=== PATIENT | male | born 1965 | race Hispanic/Latino ===

== ENCOUNTER 2019-08-02 18:46 | Emergency (ER) | payer OTHER ==
[2019-08-02] MEDS ORDERED: IOHEXOL 350 MG/ML 100ML INFUS..BTL IV ONE (19:11)
[2019-08-02 20:04] LABS: BASOPHILS % (AUTO) 0.5 % (0.0-5.0); EOSINOPHILS % (AUTO) 0.4 % (0.0-8.0); HEMATOCRIT 48.8 % (42-54); LYMPHOCYTES % (AUTO) 17.6 % (21.0-51.0); MEAN CORPUSCULAR HEMOGLOBIN 31.7 pg (27.0-33.0); MEAN CORPUSCULAR HGB CONC 35.1 g/dL (32.0-36.0); MEAN CORPUSCULAR VOLUME 90.5 fL (79-99); MONOCYTES % (AUTO) 4.5 % (3.0-13.0); PLATELET COUNT (AUTO) 225 K/uL (130-400); RED BLOOD CELL COUNT(AUTO) 5.39 MIL/uL (4.50-6.20); RED CELL DISTRIBUTION WIDTH 12.6 % (11.0-15.5); WHITE BLOOD COUNT (AUTO) 13.2 K/uL (4.8-10.8)
[2019-08-02 20:07] LABS: APPEARANCE,URINE Clear (CLEAR); BILIRUBIN,URINE Negative (NEGATIVE); COLOR,URINE Yellow (YELLOW); GLUCOSE, URINE (UA) Negative (NEGATIVE); KETONES,URINE Negative (NEGATIVE); LEUKOCYTE ESTERASE ,URINE Negative (NEGATIVE); NITRATE,URINE Negative (NEGATIVE); OCCULT BLOOD,URINE Negative (NEGATIVE); PH,URINE 5.5 (5.0-8.0); PROTEIN,URINE Negative (NEGATIVE); UROBILINOGEN,URINE 0.2 mg/dL (0.2-1.0)
[2019-08-02] MEDS ORDERED: MORPHINE SULFATE 2 MG/ML 1ML SYG ONE (20:08)
[2019-08-02 20:15] LABS: CREATININE 0.9 mg/dL (0.5-1.5); POTASSIUM 3.6 mmol/L (3.5-5.1)
[2019-08-02 20:18] LABS: INR 1.03 (0.85-1.15); PROTHROMBIN TIME 10.8 SEC (9.6-11.6)
[2019-08-02 20:19] LABS: ALBUMIN 4.3 g/dL (3.5-5.0); BILIRUBIN,DIRECT 0.1 mg/dL (0.0-0.3); BILIRUBIN,TOTAL 0.5 mg/dL (0.2-1.0); TOTAL PROTEIN, SERUM 7.5 g/dL (6.0-8.3)
[2019-08-02] MEDS ORDERED: SODIUM CHLORIDE 0.9% 1000ML 1,000 ML IV ONE (20:23)
[2019-08-02] MEDS ORDERED: IBUPROFEN 600 MG TABLET ONE (21:24)
== END 2019-08-02 23:43 ==
LOC: EDH 18:46
DX: S22.31XA Fracture of one rib, right side, initial encounter for closed fracture (principal); S00.81XA Abrasion of other part of head, initial encounter; Z87.891 Personal history of nicotine dependence; V57.0XXA Driver of pick-up truck or van injured in collision with fixed or stationary object in nontraffic accident, initial encounter; Y93.89 Activity, other specified; Y92.89 Other specified places as the place of occurrence of the external cause; Y99.8 Other external cause status
CPT/HCPCS: 36415; 70450; 71045; 71260; 72125; 74177; 80048; 80076; 81003; 82550; 83690; 84484; 85025; 85610; 85730; 93005; 96374; 99285; J7030; Q9967

== ENCOUNTER 2025-05-03 07:06 | Emergency (ER) | payer BC ==
[~2025-05-03] VITALS: Ht 172.7 cm; Wt 73.5 kg
[2025-05-03] MEDS ORDERED: LIDOCAINE HCL 1% 20 ML VIAL ONE (07:45)
[2025-05-03] MEDS ORDERED: CLIN-141 PO (08:25)
--- NOTE | 2025-05-03 08:25 | ERN ---
ED Note History of Present Illness Stated Complaint: CELLULITIS TO LT HAND Chief Complaint: Cellulitis Time Seen by MD: 07:24 Dictation: 59-year-old male with puncture wound to left hand from knife while cutting fruit, no foreign body object, reports two days ago with some swelling surrounding. Tetanus up-to-date. Allergies: Coded Allergies: No Known Drug Allergies (Unverified Allergy, Unknown, 08/03/19) Past Medical History Past Medical History: Hypertension, Other Additional Past Medical Hx: HEPC Surgical History: None Review of System Dictation Constitutional: Negative for fever,chills, and weight loss Eyes: Negative for injury, pain,redness, and discharge ENT: Negative for injury,pain or swelling Cardiovascular: Negative for chest pain, palpitations, and edema Respiratory: Negative for shortness of breath, cough, and wheezing, Abdomen/GI: Negative for abdominal pain, nausea, vomiting, diarrhea, and constipation MS/Extremity: Per HPI Skin: Per HPI Initial Vital Sign VS Vital Signs Date Time Temp Pulse Resp B/P (MAP) Pulse Ox O2 Delivery O2 Flow Rate FiO2 05/03/25 07:08 97.9 72 16 157/93 96 Room Air* 0 21 Physical Exam Dictation General: awake, alert, NAD Head/Face: Normocephalic, atraumatic Eyes: PERRL, EOMI, vision at baseline ENT: oral cavity clear, TMs clear, no signs of infection Neck: Trachea midline, supple, no nuchal rigidity Cardiovascular: RRR, normal S1/S2, No MRGs, no JVD Respiratory: CTAB, no respiratory distress, No rales or wheezes Abdomen: Soft, non-tender, non-distended, normal bowel sounds, no guarding or rebound. Skin: Warm, dry, normal turgor, no rash, left hand puncture wound small, 2 cm, no foreign body object noted, mild erythema surrounding MS/Extremity: Pulses equal, no cyanosis, neurovascular intact, FROM Neuro: COAx4, GCS 15, strength 5/5, CN 2-12 intact, normal cerebellar exam, normal gait, Psych: Normal behavior, mood, and affect normal ED Course ED Course Orders Procedure Category Date Status Time Ceftriaxone 1g Vial PHA 05/03/25 Complete (Rocephine 1g Inj) 08:00 Hand 3+Vws Lt RAD 05/03/25 Taken 07:31 Ketorolac PHA 05/03/25 Complete Tromethamine 15mg/Ml 08:00 Lidocaine Hcl 1% 20ml PHA 05/03/25 Complete Vial (Lidocaine Hc 07:45 Current Medications Medications (Trade) Dose Ordered Sig/Donny Route PRN Reason Start Time Stop Time Status Last Admin Dose Admin Ceftriaxone Sodium (ROCEphine 1G INJ) 1 gm ONCE ONCE IM 05/03/25 08:00 05/03/25 08:01 DC 05/03/25 07:47 Ketorolac Tromethamine (toRADol) 15 mg ONCE ONCE IM 05/03/25 08:00 05/03/25 08:01 DC 05/03/25 07:47 Lidocaine HCl (Lidocaine HCl 1% 20ml Vial) 20 ml STK-MED ONCE .ROUTE 05/03/25 07:45 05/03/25 07:45 DC Vital Signs Date Time Temp Pulse Resp B/P (MAP) Pulse Ox O2 Delivery O2 Flow Rate FiO2 05/03/25 07:08 97.9 72 16 157/93 96 Room Air 0 05/03/25 07:08 97.9 72 16 157/93 96 Room Air* 0 21 Medical Decision Making MDM MDM: Differential diagnosis: Rationale: Tests considered and ordered secondary to shared decision making include: Previous outside records reviewed: Old ER visits. Risk of complication and/or morbidity or mortality of patient management: None Medications-Per medication reconciliation Need for hospitalization: Patient does not meet criteria for hospitalization. Need for emergency major/minor surgery: No There are no social concerns with this patient. Prescription drug management Prescriptions will include symptomatic care Patient's prior external medical records from other ER visits were reviewed by me as indicated. Prior testing and results from previous visits were reviewed. Prior tests were taken into account with medical decision making and resource utilization, independent historian/historians were used to obtain complete medical history. I independently interpreted the test that were performed, results were reviewed by me and considered findings on radiology if ordered. Medical management and examination interpretation discussions were had by me with other qualified healthcare professionals as indicated for the patient's care. X-ray reviewed and interpreted by me no fractures or dislocations no acute process, Puncture wound with small cellulitis, prescriptions given stable given, stable for outpatient treatment. DX & DISP Disposition: Discharge Departure Impression: Primary Impression: Cellulitis of left hand Additional Impression: Puncture wound of hand, left Condition: Stable Scripts Clindamycin HCl (Clindamycin HCl) 300 Mg Capsule 1 CAP PO TID for 10 Days, #30 CAP 0 Refills Prov: JAMES CALLAHAN MD 05/03/25 Referrals: SELF,REFERRAL (PCP) JAMES CALLAHAN MD May 03, 2025 08:25
--- NOTE | 2025-05-03 08:31 | HMCIMG ---
EXAM: CR right Hand, 3 View. CLINICAL HISTORY: injury COMPARISON: None provided. FINDINGS: BONES: No acute fracture or dislocation. JOINTS: There is joint space narrowing in the proximal interphalangeal joint of the middle finger with angulation of the finger at this level. This appears chronic in nature. SOFT TISSUES: The soft tissues appear within normal limits. No radiopaque foreign body is seen. IMPRESSION: 1. There is joint space narrowing in the proximal interphalangeal joint of the middle finger with angulation of the finger at this level. This appears chronic in nature. 2. No acute fracture or dislocation. /[place]
[2025-05-03 08:33] VITALS: BP 147/97; PULSE 64; RESP 20; TEMP 97.9; O2SAT 96
== END 2025-05-03 09:16 | disposition home or self-care (01) ==
LOC: EDH 07:06
DX: S61.432A Puncture wound without foreign body of left hand, initial encounter (principal); I10 Essential (primary) hypertension; L03.114 Cellulitis of left upper limb; W26.0XXA Contact with knife, initial encounter; Y93.89 Activity, other specified; Y92.89 Other specified places as the place of occurrence of the external cause; Y99.8 Other external cause status
CPT/HCPCS: 99284; 73130; 96372 ×2; J1885; J0696